=== PATIENT | female | born 1970 | race Caucasian/White ===

== ENCOUNTER 2022-12-27 16:12 | Emergency (ER) | payer OTHER ==
[~2022-12-27] VITALS: Ht 165.1 cm; Wt 78.0 kg
[2022-12-27 16:25] VITALS: BP_SYST 146; PULSE 85; RESP 18; TEMP 98.3; O2SAT 98
[2022-12-27] MEDS ORDERED: KETOROLAC TROMETHAMINE 30 MG VIAL IVP ONE (16:30)
[2022-12-27] MEDS ORDERED: DEXAMETHASONE SOD PHOSPHATE 10 MG/ML VIAL IVP ONE (16:30)
[2022-12-27] MEDS ORDERED: CLINDAMYCIN 900 mg/50mL D5W 50 ML IV ONE (16:30)
[2022-12-27] MEDS ORDERED: DICL75TA5 PO (17:32)
[2022-12-27] MEDS ORDERED: CLIN-142 PO (17:32)
[2022-12-27] MEDS ORDERED: DEC4 PO (17:32)
[2022-12-27 17:47] VITALS: BP_SYST 130; PULSE 80; RESP 18; TEMP 98; O2SAT 98
== END 2022-12-27 17:50 | disposition home or self-care (01) ==
LOC: SED 16:12
DX: K04.7 Periapical abscess without sinus (principal); Z88.0 Allergy status to penicillin; Z79.899 Other long term (current) drug therapy
CPT/HCPCS: 99284; 96365; 96375; J3490; J1100; J1885